=== PATIENT | male | born 1975 | race Caucasian/White ===

== ENCOUNTER 2016-11-30 00:45 | Emergency (ER) | payer MEDICAID ==
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
[2016-11-30] MEDS ORDERED: NICOTINE 21 MG/24 HR PATCH.TD24 TD ONE (01:37)
[2016-11-30] MEDS ORDERED: QUETIAPINE FUMARATE 100 MG TABLET PO ONE (01:53)
[2016-11-30 02:01] LABS: APPEARANCE,URINE CLEAR; BILIRUBIN,URINE NEGATIVE (NEGATIVE); GLUCOSE, URINE NEGATIVE (NEGATIVE); KETONES,URINE NEGATIVE (NEGATIVE); LEUKOCYTE ESTERASE,URINE NEGATIVE (NEGATIVE); NITRITE,URINE NEGATIVE (NEGATIVE); PROTEIN,URINE NEGATIVE (NEGATIVE); URINE SPECIFIC GRAVITY 1.017; UROBILINOGEN,URINE NEGATIVE mg/dL (<2.0)
[2016-11-30 02:17] LABS: ABSOLUTE BASOPHILS # (AUTO) 0.1 10^3/uL (0.0-0.2); ABSOLUTE EOSINOPHILS # (AUTO) 0.2 10^3/uL (0.0-0.6); ABSOLUTE LYMPHOCYTES (AUTO) 3.2 10^3/uL (0.5-4.7); ABSOLUTE MONOCYTES (AUTO) 0.8 10^3/uL (0.1-1.4); ABSOLUTE NEUT (AUTO) 5.3 10^3/uL (1.7-8.2); BASOPHILS % (AUTO) 0.7 % (0-2); HEMATOCRIT 47.2 % (37.9-51.0); HEMOGLOBIN 16.2 g/dL (13.5-17.0); HGB HCT DIFFERENCE 1.4; LYMPHOCYTES % (AUTO) 33.4 % (13-45); MEAN CORPUSCULAR HEMOGLOBIN 29.5 pg (27.0-33.4); MEAN CORPUSCULAR HGB CONC 34.3 g/dL (32.0-36.0); MEAN CORPUSCULAR VOLUME 86 fl (80-97); MONOCYTES % (AUTO) 8.6 % (3-13); RED BLOOD COUNT 5.49 10^6/uL (4.35-5.55); SEGMENTED NEUTROPHILS % (AUTO) 55.3 % (42-78); WHITE BLOOD COUNT 9.6 10^3/uL (4.0-10.5)
[2016-11-30 02:17] LABS: URINE BARBITURATES SCREEN NEGATIVE; URINE METHADONE SCREEN NEGATIVE; URINE OPIATES LOW NEGATIVE; URINE PHENCYCLIDINE SCREEN NEGATIVE
[2016-11-30 02:32] LABS: ALANINE AMINOTRANSFERASE 39 U/L (21-72); ALKALINE PHOSPHATASE 73 U/L (38-126); ANION GAP 7 (5-19); ASPARTATE AMINO TRANSFERASE 20 U/L (17-59); BILIRUBIN,DIRECT 0.3 mg/dL (0.0-0.4); BILIRUBIN,TOTAL 0.8 mg/dL (0.2-1.3); BLOOD UREA NITROGEN 14 mg/dL (7-20); CALCIUM 9.5 mg/dL (8.4-10.2); CARBON DIOXIDE 29 mmol/L (22-30); CHLORIDE 104 mmol/L (98-107); CREATININE RESULT 0.89 mg/dL (0.52-1.25); GLUCOSE 90 mg/dL (75-110); SODIUM 139.6 mmol/L (137-145); TOTAL PROTEIN 6.8 g/dL (6.3-8.2)
[2016-11-30 02:34] LABS: ALCOHOL < 10 mg/dL (NONE DETECTED)
--- NOTE | 2016-11-30 10:04 | EKG REPORT ---
SEVERITY:- ABNORMAL ECG - SINUS RHYTHM INFERIOR INFARCT, OLD : Confirmed by: Stella Barrow 30-Nov-2016 10:04:20
--- NOTE | 2016-11-30 10:52 | ER Document Report ---
Doctor's Note Notes: 11/30/16 10:51 Chart reviewed. Today patient reports persistent suicidal ideation. Lab review demonstrates positive marijuana and cocaine. Patient states she feels sad and is tearful this morning. At this time he appears medically stable for psychiatric disposition.
--- NOTE | 2016-11-30 12:06 | PSYCHOLOGICAL NOTE ---
Psych Note - Psych Note Psych Note: Patient is a 41 year old male who presented overnight via his sister after he went to [place] to see his best friend and use one of his guns to commit suicide. Patient endorses he does know individuals here in the [place] area who have guns, but states, "none of them would dare put one in my hand in this state." Patient states he wants to . Patient states there is nothing left in life for him. Patient endorses long history of SA, and acknowledges that over the past month he has been doing whatever drug he could get his hands on. Patient states he previously lived with his son, age 16, but his son has gone to [place] to take a break from him. Patient reports he now lives with his mother, and she can be contacted for collateral. Patient reports he is on probation "for bull sh charges" which he states are drug related. Patient unable and unwilling to provide the name of his PO. Patient denies any prior suicide attempts, but does endorse a history of inpatient psychiatric treatment a few years ago in [place]. Patient states this was the best experience for him because he had people he could talk to and regulate his medications. Discussed with patient that his substance abuse is chronic and at this time primary, and required treatment. Patient became agitated aeb labile tone of voice and body language, and state he could not leave this ED because he will not survive. Patient states he will without a doubt, commit suicide. Cocaine Abuse, per history Cannabis Abuse, per history R/O Bipolar Disorder Patient is recommended to remain under IVC for further disposition and evaluations. Patient at this time is labile and likely withdrawing from his past week of substance abuse. Patient at this time is endorses SI. Patient became quite agitated when attempting to discuss substance abuse treatment. I consulted with Dr. Cooper in regards to the care and management of this patient. ED MD is in agreement with disposition and recommendations.
[2016-11-30] MEDS ORDERED: OLANZAPINE 5 MG TABLET PO SCH (12:30)
[2016-11-30] MEDS ORDERED: BENZTROPINE MESYLATE 1 MG TABLET PO SCH (12:30)
[2016-11-30] MEDS ORDERED: HYDROXYZINE PAMOATE 50 MG CAPSULE PO ONE (23:39)
--- NOTE | 2016-12-01 10:58 | ER Document Report ---
Doctor's Note Notes: 12/01/16 10:58 As the rounding physician for our psychiatric patients, I have reviewed the chart, vitals, lab work. Patient has been examined, is resting comfortably, and noted to be stable at this time . I am awaiting mental health in put regarding placement.
[2016-12-01] MEDS ORDERED: NICOTINE 21 MG/24 HR PATCH.TD24 TD ONE (12:09)
[2016-12-01] MEDS: BENZTROPINE MESYLATE 1 MG TABLET PO SCH (12:50)
[2016-12-01] MEDS ORDERED: OLANZAPINE 5 MG TABLET PO ONE (13:00)
[2016-12-01] MEDS ORDERED: BENZTROPINE MESYLATE 1 MG TABLET PO ONE (13:00)
--- NOTE | 2016-12-01 13:57 | PSYCHOLOGICAL NOTE ---
Psych Note - Psych Note Psych Note: Conducted check in with patient is a 41 year old male under IVC at [facility] ED. Patient initially presented via his sister after he went to [place] to see his best friend and use one of his guns to commit suicide. Patient continues to endorse SI and states he will obtain a gun to commit suicide. Patient denies that his substance abuse is primary, and states his psychiatric illness is the problem, and the drugs are used to cope. Discussed with patient that his substance abuse is chronic and at this time primary, and required treatment. Patient provided education regarding the services and treatment available in [place] at this time. Patient provided verbal consent to speak with his mother. Ada (mother) [phone] states: no answer, and unable to leave message Patient is A&Ox4. Mood is depressed with normal affect. Patient endorses SI with plan. Patient denies homicidal ideations, intent, plan, or means. Patient denies A/V H; delusions not noted. Thought processes were goal oriented towards remaining in the ER. Conversational speech was labile for prosody. Intellectual abilities were estimated within average range. Attention and focus were fair. Insight, judgment, and impulse control were poor. Cocaine Abuse, per history Cannabis Abuse, per history R/O Bipolar Disorder Patient is recommended to remain under IVC for further disposition and evaluations.
[2016-12-01] MEDS ORDERED: FLUOXETINE HCL 20 MG CAPSULE PO SCH (14:30)
[2016-12-01] MEDS: OLANZAPINE 5 MG TABLET PO SCH (18:07)
[2016-12-01] MEDS ORDERED: FLUOXETINE HCL 20 MG/5 ML UDCUP PO ONE (18:30)
[2016-12-01] MEDS ORDERED: CLONIDINE HCL 0.1 MG TABLET PO ONE (20:46)
[2016-12-02] MEDS: OLANZAPINE 5 MG TABLET PO SCH ×2 (09:57→17:23)
[2016-12-02] MEDS: BENZTROPINE MESYLATE 1 MG TABLET PO SCH (09:57)
[2016-12-02] MEDS ORDERED: FLUOXETINE HCL 20 MG/5 ML UDCUP PO SCH (10:00)
--- NOTE | 2016-12-02 12:41 | ER Document Report ---
Doctor's Note Notes: 12/02/16 12:39 Rounds: Chart reviewed and patient sleeping soundly, does not awaken to me calling his name several times. Vital signs have been normal. Lab studies were significantly positive for cocaine and marijuana on his drug screen. Patient appears to be medically stable for transfer or discharge. Malachi Louis MD
[2016-12-02 14:39] VITALS: BP 141/88
--- NOTE | 2016-12-02 15:13 | ER Document Report ---
ED Psych Disorder / Suicide - General Chief Complaint: Psych Problem Stated Complaint: SUICIDAL IDEATIONS Time Seen by Provider: 11/30/16 01:13 Mode of Arrival: Ambulatory Information source: Patient TRAVEL OUTSIDE OF THE U.S. IN LAST 30 DAYS: No - HPI Notes: Patient is a 41 year old male under IVC at [facility] ED. Patient initially presented via his sister after he went to [place] to see his best friend and use one of his guns to commit suicide. Patient continues to endorse SI and states he will obtain a gun to commit suicide. Patient denies that his substance abuse is primary, and states his psychiatric illness is the problem, and the drugs are used to cope. Discussed with patient that his substance abuse is chronic and at this time primary, and required treatment. Patient provided education regarding the services and treatment available in [place] at this time. Patient provided verbal consent to speak with his mother. Patient states he does not feel any better. He disclosed that he has had episode of hallucinating. He continued disclosed that he did not know he was hallucinating however people told him it it was not real. He continued disclosed that his visual hallucination is up shadow people however he continued disclosed that he did not want to talk about it "makes it too real." When clinician discussed discharge plans patient stated "I cannot stay here were my supposed to go." Patient proceeded to threatening suicidal gestures. Patient continued disclosed the first time he had an episode was "years ago" in late 2004 however denies receiving any mental health services after. Patient denies having outpatient mental health provider or taking any medications. Patient continued disclosed that he is currently on probation and is supposed to go to substance abuse treatment however "they never set it up" so he has not gone. Patient has been on probation for approximately 5 months. Ada (mother) [phone]. He has been suicidal this last week and homicidal now. He had a friend that ( 2 weeks ago), lost his job (the day after his friend )and his son went back to [place]. Patient sat in his chair for 2 days after hearing of his friends . This is very similar about what has happened in the past one or twice. Was put on "antipsychotics and was hospitalized for a length of time." At that time he was suicidal and homicidal ideation. Concerned the patient has not been sleeping and historically this has caused issues. Patient has issues with his spine was hospitalized for over 2 months for infection settled into his spine from his blood in [place]. 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 Cocaine Abuse, per history Cannabis Abuse, per history R/O Bipolar Disorder with Psychotic features. V62.9 (Z65.9) unspecified problem related to unspecified psychological and circumstance impression\\plan: Patient is recommended for rescind of IVC and is considered psychiatrically clear for discharge. Patient no longer meets criteria per [place] GS 122C. Patient discloses history (12 years) of substance abuse and noncompliance with mental health services. Patient is recommended to receive substance abuse assessment and treatment patient to mental health treatment. Dr. Cooper was consulted on the care and management of this patient; attending physician is in agreement with recommendations and disposition. - Related Data Allergies/Adverse Reactions: Sulfa (Sulfonamide Antibiotics) Allergy (Verified 12/26/15 04:26) Home Medications: Current Home Medications Benzonatate [Tessalon Perle 100 mg Capsule] 200 mg PO TIDP PRN 12/01/16 [History ] Clonidine HCl [Catapres 0.1 mg Tablet] 0.1 mg PO Q12 12/01/16 [History] Escitalopram Oxalate [Lexapro 10 mg Tablet] 10 mg PO DAILY 12/01/16 [History] Lisinopril/Hydrochlorothiazide [Lisinopril-Hctz 20-25 mg Tab] 1 tab PO DAILY [History] Methocarbamol [Robaxin 750 mg Tablet] 750 mg PO Q4HP PRN 12/01/16 [History] Nystatin/Dexameth/Diphen [Magic Mouthwash] 5 ml PO Q4 12/01/16 [History] Oxycodone HCl [Roxicodone] 30 mg PO Q6 12/01/16 [History] Prednisone [Sterapred Ds] 1 packet PO ASDIR PRN 12/01/16 [History] Trazodone HCl [Desyrel] 150 mg PO QHS 12/01/16 [History] Past Medical History - General Information source: Patient - Social History Smoking Status: Current Every Day Smoker - 2 packs Cigarette use (# per day): Yes - 2 packs Frequency of alcohol use: Heavy - past few days Drug Abuse: Cocaine, Other - opiates Lives with: Parents - mom Family History: Reviewed & Not Pertinent Patient has suicidal ideation: Yes Patient has homicidal ideation: No - Past Medical History Cardiac Medical History: Reports: Hx Hypertension - untreated for awhile Renal/ Medical History: Denies: Hx Peritoneal Dialysis Psychiatric Medical History: Reports: Hx Depression Past Surgical History: Reports: Hx Appendectomy - Immunizations Hx Diphtheria, Pertussis, Tetanus Vaccination: Yes Physical Exam - Vital signs Vitals: Temp Pulse Resp BP Pulse Ox 98.0 F 100 20 160/103 H 100 11/30/16 00:49 11/30/16 00:49 11/30/16 00:49 11/30/16 00:49 11/30/16 00:49 Course - Vital Signs Vital signs: Temp Pulse Resp BP Pulse Ox 97.8 F 76 20 141/88 H 97 12/02/16 14:17 12/02/16 14:17 12/02/16 14:17 12/02/16 14:17 12/02/16 14:17 - Laboratory Result Diagrams: 11/30/16 02:00 11/30/16 02:00 Laboratory results interpreted by me: 11/30/16 11/30/16 01:30 02:00 Urine Blood SMALL H Salicylates < 1.0 L Acetaminophen < 10 L Discharge - Discharge Clinical Impression: Paranoia, Suicide ideation, Polysubstance (including opioids) dependence w/o physiol dependence Suicide gesture Qualifiers: Encounter type: initial encounter Qualified Code(s): X83.8XXA - Intentional self-harm by other specified means, initial encounter Condition: Stable Disposition: HOME, SELF-CARE Additional Instructions: DEPRESSION: Your evaluation reveals that you have mental depression. While symptoms may be vague, they often include disturbance of sleep, fatigue, loss of appetite , and general loss of interest in life. While depression may be a side effect of drugs, or a reaction to a major change in your life, many cases have no known cause. If depression is acute, and related to a major loss in your life, you can expect it to clear completely with time. If you have been depressed a long time , are prone to repeated bouts of depression or low mood, or have been thinking of suicide, get help. Depression can be treated with anti-depressant medication and counselling. Long-term depression will often take a few weeks to clear, even with appropriate medication. Follow-up care is important. SUICIDAL IDEATION: Suicidal ideation is a common medical term for thoughts about suicide, which may be as detailed as a formulated plan, without the suicidal act itself. Although most people who undergo suicidal ideation do not commit suicide, some go on to make suicide attempts. The range of suicidal ideation varies greatly from fleeting to detailed planning, role playing, and unsuccessful attempts. While thoughts about suicide are common, most people do not carry out serious actions to commit suicide. Based upon your evaluation and discussion with you, we do not believe you are currently at risk to act upon your thoughts of suicide. You have agreed to return to the Emergency Department, at any time , if you feel inclined to act upon your suicidal thoughts. FOLLOW-UP CARE: Please follow up with [facility] Sub[facility] abuse assessment and treatment within 2 days. If you experience worsening or a significant change in your symptoms, notify the physician immediately or return to the Emergency Department at any time for re-evaluation. Referrals: [facility] [Outside] - 12/04/16
== END 2016-12-02 17:33 | disposition home or self-care (01) ==
LOC: ER 00:45
DX: R45.851 Suicidal ideations (principal); F22 Delusional disorders; F11.20 Opioid dependence, uncomplicated; F17.210 Nicotine dependence, cigarettes, uncomplicated; X83.8XXA Intentional self-harm by other specified means, initial encounter; F12.10 Cannabis abuse, uncomplicated; F14.10 Cocaine abuse, uncomplicated; Z88.2 Allergy status to sulfonamides
CPT/HCPCS: 93005; 99285; 36415; 80307 ×4; 85025; 80053; 81001; 93010; J3490 ×2

== ENCOUNTER 2016-12-06 01:22 | Emergency (ER) | payer SELFPAY ==
--- NOTE | 2016-12-06 01:40 | ER Document Report ---
ED Psych Disorder / Suicide - General Chief Complaint: Suicidal Ideation Stated Complaint: SUICIDAL IDEATION Time Seen by Provider: 12/06/16 01:39 Mode of Arrival: Ambulatory Information source: Patient Notes: 41 yo male cut his wrists sometime tonight and wanted to lay in bathtub and . He is agitated, visually hallucinating that man in [place] has a tail, Will haunts him, sees his face, was his tatoo client, blames himself for his . pt. states he is recovering heroin addict. Xanax this morning from mom. Last Heroin few weeks ago. He was [facility] ER 5-30 psych until discharge 12-02-16. TRAVEL OUTSIDE OF THE U.S. IN LAST 30 DAYS: No - Related Data Allergies/Adverse Reactions: Sulfa (Sulfonamide Antibiotics) Allergy (Verified 12/26/15 04:26) Past Medical History - General Information source: Patient - Social History Smoking Status: Current Every Day Smoker Frequency of alcohol use: Occasional - today Drug Abuse: None Lives with: Family - mother Family History: Reviewed & Not Pertinent - Past Medical History Cardiac Medical History: Reports: Hx Hypertension - untreated for awhile Renal/ Medical History: Denies: Hx Peritoneal Dialysis Psychiatric Medical History: Reports: Hx Anxiety, Hx Depression Past Surgical History: Reports: Hx Appendectomy - Immunizations Hx Diphtheria, Pertussis, Tetanus Vaccination: Yes Review of Systems - Review of Systems Constitutional: No symptoms reported EENT: No symptoms reported Cardiovascular: No symptoms reported Respiratory: No symptoms reported Gastrointestinal: No symptoms reported Genitourinary: No symptoms reported Male Genitourinary: No symptoms reported Musculoskeletal: No symptoms reported Skin: No symptoms reported Hematologic/Lymphatic: No symptoms reported Neurological/Psychological: See HPI Physical Exam - Vital signs Vitals: Temp Pulse Resp BP Pulse Ox 99.4 F 97 20 148/103 H 97 12/06/16 03:20 12/06/16 03:20 12/06/16 03:20 12/06/16 03:20 12/06/16 03:20 Interpretation: Normal - General General appearance: Appears well, Alert - HEENT Head: Normocephalic, Atraumatic Eyes: Normal Conjunctiva: Normal Pupils: PERRL Mucous membranes: Dry Neck: Supple. No: Lymphadenopathy - Respiratory Respiratory status: No respiratory distress Chest status: Nontender Breath sounds: Normal Chest palpation: Normal - Cardiovascular Rhythm: Regular Heart sounds: Normal auscultation Murmur: No - Abdominal Inspection: Normal Distension: No distension Bowel sounds: Normal Tenderness: Nontender. No: Tender Organomegaly: No organomegaly - Back Back: Normal, Nontender - Extremities General upper extremity: Normal inspection, Nontender, Normal color, Normal ROM , Normal temperature General lower extremity: Normal inspection, Nontender, Normal color, Normal ROM , Normal temperature, Normal weight bearing. No: Za's sign Wrist: Tender - horozontal superficial cut 3 cm to right volar wrist. left wrist similar 3cm superficial cut to volar wrist-horozontal - Neurological Neuro grossly intact: Yes Cognition: Normal Orientation: AAOx4 [place] Coma Scale Eye Opening: Spontaneous [place] Coma Scale Verbal: Oriented [place] Coma Scale Motor: Obeys Commands [place] Coma Scale Total: 15 Speech: Normal Motor strength normal: LUE, RUE, LLE, RLE Sensory: Normal - Psychological Associated symptoms: Agitated, Confused - did not know day or time, Irritable, Paranoid, Psychomotor agitation, Visual hallucinations - Skin Skin Temperature: Warm Skin Moisture: Dry Skin Color: Normal Skin irregularity: Laceration - bilateral volar wrists Course - Re-evaluation Re-evalutation: 12/06/16 02:36 ekg NSR signed /read by dr. isabel 12/06/16 05:26 pt positive for cocaine and etoh. 12/06/16 06:00 pt has been IVC'd, Dr. Harley signed the IVC and the nurse will fax to [employer]. 12/06/16 06:17 asleep - Vital Signs Vital signs: Temp Pulse Resp BP Pulse Ox 97.9 F 92 18 154/116 H 98 12/06/16 14:46 12/06/16 14:46 12/06/16 14:46 12/06/16 14:46 12/06/16 14:46 - Laboratory Result Diagrams: 12/06/16 03:43 12/06/16 03:43 Laboratory results interpreted by me: 12/06/16 12/06/16 03:43 03:43 WBC 10.6 H RBC 5.62 H RDW 14.5 H Sodium 145.3 H Chloride 111 H Carbon Dioxide 18 L Salicylates < 1.0 L Acetaminophen < 10 L Discharge - Discharge Clinical Impression: Polysubstance abuse, Paranoia, Visual and auditory hallucinations Suicide gesture Qualifiers: Encounter type: initial encounter Qualified Code(s): X83.8XXA - Intentional self-harm by other specified means, initial encounter Condition: Stable Disposition: PSYCH HOSP/UNIT
[2016-12-06] MEDS ORDERED: DIPH/PERTUSS(ACELL)/TETANUS VAC/PF 0.5 ML SYR (>=10YO) IM ONE (01:53)
[2016-12-06] MEDS ORDERED: ZIPRASIDONE MESYLATE INJ/PF 20 MG SDV IM ONE (02:32)
[2016-12-06 03:40] LABS: APPEARANCE,URINE CLEAR; BILIRUBIN,URINE NEGATIVE (NEGATIVE); GLUCOSE, URINE NEGATIVE (NEGATIVE); KETONES,URINE NEGATIVE (NEGATIVE); LEUKOCYTE ESTERASE,URINE NEGATIVE (NEGATIVE); NITRITE,URINE NEGATIVE (NEGATIVE); PROTEIN,URINE NEGATIVE (NEGATIVE); URINE SPECIFIC GRAVITY 1.005; UROBILINOGEN,URINE NEGATIVE mg/dL (<2.0)
[2016-12-06 03:53] LABS: URINE BARBITURATES SCREEN NEGATIVE; URINE METHADONE SCREEN NEGATIVE; URINE OPIATES LOW NEGATIVE; URINE PHENCYCLIDINE SCREEN NEGATIVE
[2016-12-06 04:07] LABS: ABSOLUTE EOSINOPHILS # (AUTO) 0.1 10^3/uL (0.0-0.6); ABSOLUTE LYMPHOCYTES (AUTO) 3.8 10^3/uL (0.5-4.7); ABSOLUTE MONOCYTES (AUTO) 0.7 10^3/uL (0.1-1.4); ABSOLUTE NEUT (AUTO) 6.1 10^3/uL (1.7-8.2); BASOPHILS % (AUTO) 0.4 % (0-2); EOSINOPHILS % (AUTO) 0.8 % (0-6); HEMATOCRIT 49.4 % (37.9-51.0); HEMOGLOBIN 16.5 g/dL (13.5-17.0); HGB HCT DIFFERENCE 0.1; LYMPHOCYTES % (AUTO) 35.4 % (13-45); MEAN CORPUSCULAR HEMOGLOBIN 29.4 pg (27.0-33.4); MEAN CORPUSCULAR HGB CONC 33.5 g/dL (32.0-36.0); MEAN CORPUSCULAR VOLUME 88 fl (80-97); MONOCYTES % (AUTO) 6.1 % (3-13); RED BLOOD COUNT 5.62 10^6/uL (4.35-5.55); RED CELL DISTRIBUTION WIDTH 14.5 % (11.5-14.0); SEGMENTED NEUTROPHILS % (AUTO) 57.3 % (42-78); WHITE BLOOD COUNT 10.6 10^3/uL (4.0-10.5)
[2016-12-06] MEDS ORDERED: LORAZEPAM INJ 2 MG/1 ML VIAL IM ONE (04:09)
[2016-12-06] MEDS ORDERED: LORAZEPAM INJ 2 MG/1 ML VIAL ONE (04:10)
[2016-12-06 04:12] LABS: ALANINE AMINOTRANSFERASE 39 U/L (21-72); ALBUMIN 4.3 g/dL (3.5-5.0); ALCOHOL 123 mg/dL (NONE DETECTED); ALKALINE PHOSPHATASE 70 U/L (38-126); ANION GAP 16 (5-19); ASPARTATE AMINO TRANSFERASE 22 U/L (17-59); BILIRUBIN,DIRECT 0.3 mg/dL (0.0-0.4); BILIRUBIN,TOTAL 0.4 mg/dL (0.2-1.3); BLOOD UREA NITROGEN 8 mg/dL (7-20); CALCIUM 9.4 mg/dL (8.4-10.2); CARBON DIOXIDE 18 mmol/L (22-30); CHLORIDE 111 mmol/L (98-107); CREATININE RESULT 0.91 mg/dL (0.52-1.25); GLUCOSE 102 mg/dL (75-110); POTASSIUM 3.8 mmol/L (3.6-5.0); SODIUM 145.3 mmol/L (137-145); TOTAL PROTEIN 7.3 g/dL (6.3-8.2)
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
[2016-12-06] MEDS ORDERED: NICOTINE 21 MG/24 HR PATCH.TD24 TD ONE (11:39)
--- NOTE | 2016-12-06 14:38 | EKG REPORT ---
SEVERITY:- ABNORMAL ECG - SINUS RHYTHM INFERIOR INFARCT, OLD : Confirmed by: Stella Barrow 06-Dec-2016 14:37:23
[2016-12-06 14:46] VITALS: BP 154/116
--- NOTE | 2016-12-06 14:55 | PSYCHOLOGICAL NOTE ---
Psych Note - Psych Note Psych Note: Patient is a 41 year old male who presented overnight via EMS due to self inflicted lacerations on his arm, reportedly in attempt at suicide. Note, patient was seen in this Department last week and discharged to follow up with a provider, such as [facility] or [facility]. Per EMR, patient has a long history of SA; however, has recently been pursuing sobriety. Patient's toxicology was positive for Cocaine and ETOH (123). Patient advised that he has been accepted at [facility] to psychiatric inpatient treatment. Patient accepted the information without incident. Patient prompted to call his mother and make her aware of his transfer. MotherAda states: the patient's mental status has not changed since his discharge last week. She states after he was discharged , there was not time to follow up with the outpatient, and Tuesday he slept all day. Mother states to her knowledge he did not receive prescriptions, but even if he did he did not have money to fill them. Mother states yesterday he went to his trailer to pack his belongings (due to eviction) and she states she received a phone call from the patient stating he cut his wrists, and she immediately called [phone]. Mother states the patient talks about being tired, not wanting to be around, etc. Mother states his friend OD on Heroin (accidental) and he has struggled since. She does clarify that for many years he has been depressed and experienced SI. Mother states he has attempted suicide in the past , to include OD, self injury, etc. She states he has lived in many different areas and had inpatient experiences in numerous places. Patient is A&O. Mood is depressed with tearful affect. Patient endorses suicidal ideations. Patient denies homicidal ideations, intent, plan, or means. Patient denies A/V H; delusions not noted. Thought processes were organized, but guarded. Intellectual abilities were estimated within average range. Attention and focus are poor. Insight, judgment, impulse control are poor. Patient is recommended to follow through with his inpatient psychiatric placement. Patient has presented now twice in a period of 1 week with suicidal ideations, with a benign attempt last night. Patient had recent stressors, to include the of his friend, which have reportedly exasperated his depression. Consulted with Dr. Cooper in regards to the care and management of this patient. ED MD is in agreement with disposition and recommendations.
== END 2016-12-06 15:15 ==
LOC: ER 01:22
DX: S61.512A Laceration without foreign body of left wrist, initial encounter (principal); S61.511A Laceration without foreign body of right wrist, initial encounter; X78.9XXA Intentional self-harm by unspecified sharp object, initial encounter; F19.10 Other psychoactive substance abuse, uncomplicated; F11.21 Opioid dependence, in remission; F22 Delusional disorders; F17.200 Nicotine dependence, unspecified, uncomplicated; I10 Essential (primary) hypertension; Z88.2 Allergy status to sulfonamides
CPT/HCPCS: 93005; 99285; 96372; 90471; 36415; 80307 ×4; 85025; 80053; 81001; 90715; 93010; J2060; J3486

== ENCOUNTER 2016-12-20 02:39 | Emergency (ER) | payer SELFPAY ==
[2016-12-20] MEDS ORDERED: HALOPERIDOL LACTATE INJ 5 MG/1 ML VIAL IM ONE (03:03)
[2016-12-20] MEDS ORDERED: LORAZEPAM INJ 2 MG/1 ML VIAL IM ONE (03:03)
--- NOTE | 2016-12-20 03:06 | ER Document Report ---
ED General - General Chief Complaint: Suicidal Ideation Stated Complaint: SUICIDIAL IDEATION Time Seen by Provider: 12/20/16 02:55 Notes: Patient is a 41-year-old male who presents with complaint of having hallucinations. He says he hears voices. He also has visual hallucinations as well. He says that he has had a symptoms in the past. He was recently discharged from [facility] for similar symptoms. He was discharged home with medications but could not afford them and therefore has not been taking them. He says he has thoughts of suicide. He also has thoughts of homicide and says "I have targets in my head but had not acted on them". He says the only medication he takes his clonidine for hypertension. Says he was receiving Haldol and Ativan at [place] which helps control his symptoms. TRAVEL OUTSIDE OF THE [place] IN LAST 30 DAYS: No - Related Data Allergies/Adverse Reactions: Sulfa (Sulfonamide Antibiotics) Allergy (Verified 12/26/15 04:26) Past Medical History - Social History Smoking Status: Never Smoker Frequency of alcohol use: None Drug Abuse: None Family History: Reviewed & Not Pertinent - Past Medical History Cardiac Medical History: Reports: Hx Hypertension - untreated for awhile Renal/ Medical History: Denies: Hx Peritoneal Dialysis Psychiatric Medical History: Reports: Hx Anxiety, Hx Depression Past Surgical History: Reports: Hx Appendectomy - Immunizations Hx Diphtheria, Pertussis, Tetanus Vaccination: Yes Review of Systems - Review of Systems Notes: My Normal Review Basic REVIEW OF SYSTEMS: CONSTITUTIONAL : Denies fever, chills, or sweats. Denies recent illness. EENT: Denies eye, ear, throat, or mouth pain or symptoms. Denies nasal or sinus congestion.ARDIOVASCULAR: Denies chest pain. RESPIRATORY: Denies cough, cold, or chest congestion. Denies shortness of breath, difficulty breathing, or wheezing. GASTROINTESTINAL: Denies abdominal pain. Denies nausea, vomiting, or diarrhea. Denies constipation. Last BM: MUSCULOSKELETAL: Denies neck or back pain or joint pain or swelling. SKIN: Denies rash or skin lesions. NEUROLOGICAL: Denies altered mental status or loss of consciousness. Denies headache. Denies weakness or paralysis or loss of use of either side. Denies problems with gait or speech. Denies sensory or motor loss. PSYCHIATRIC: Homicidal thoughts. Visual and auditory hallucinations. ALL OTHER SYSTEMS REVIEWED AND NEGATIVE. Physical Exam - Notes Notes: General Appearance: Well nourished, alert, cooperative, no acute distress, no obvious discomfort. Vitals: reviewed, See vital signs table. Head: no swelling or tenderness to the head Eyes: PERRL, EOMI, Conjuctiva clear Mouth: No decreasd moisture Lungs: No wheezing, No rales, No rhonci, No accessory muscle use, good air exchange bilaterally. Heart: Normal rate, Regular rythm, No murmur, no rub Abdomen: Normal BS, soft, No rigidity, No abdominal tenderness, No guarding, no rebound, no abdominal masses, no organomegaly Extremities: strength 5/5 in all extremities, good pulses in all extremities, no swelling or tenderness in the extremities, no edema. Skin: warm, dry, appropriate color, no rash Neuro: speech clear, oriented x 3, normal affect, responds appropriately to question. Psychiatric: rocking back and forth in bed. easily agitated. Course - Laboratory Result Diagrams: 12/20/16 03:14 12/20/16 03:14 Laboratory results interpreted by me: 12/20/16 12/20/16 03:14 03:14 WBC 11.3 H RDW 14.5 H Salicylates < 1.0 L Acetaminophen < 10 L - EKG Interpretation by Me Additional EKG results interpreted by me: 12/20/16 03:34 Is reviewed and interpreted by me. EKG shows normal sinus rhythm with a rate of [address] segment elevation or depression. No ischemic T-wave inversions. NV interval, QRS duration, QTc intervals are within normal range. Old EKG for comparison is from December 06, 2016. - Transfer of Care Notes: 12/20/16 05:52 Patient laboratory evaluation is unremarkable. The only thing pending is urinalysis. Patient is having significant hallucinations causing suicidal and homicidal thoughts. Patient is placed on involuntary commitment paperwork. He is medically stable for psychiatric evaluation. Dictation of this chart was performed using voice recognition software; therefore, there may be some unintended grammatical errors.
[2016-12-20 03:24] LABS: ABSOLUTE BASOPHILS # (AUTO) 0.1 10^3/uL (0.0-0.2); ABSOLUTE EOSINOPHILS # (AUTO) 0.1 10^3/uL (0.0-0.6); ABSOLUTE LYMPHOCYTES (AUTO) 2.4 10^3/uL (0.5-4.7); ABSOLUTE NEUT (AUTO) 7.6 10^3/uL (1.7-8.2); BASOPHILS % (AUTO) 0.8 % (0-2); EOSINOPHILS % (AUTO) 1.2 % (0-6); HEMATOCRIT 47.9 % (37.9-51.0); HEMOGLOBIN 15.6 g/dL (13.5-17.0); HGB HCT DIFFERENCE -1.1; LYMPHOCYTES % (AUTO) 21.6 % (13-45); MEAN CORPUSCULAR HGB CONC 32.6 g/dL (32.0-36.0); MEAN CORPUSCULAR VOLUME 89 fl (80-97); RED BLOOD COUNT 5.39 10^6/uL (4.35-5.55); RED CELL DISTRIBUTION WIDTH 14.5 % (11.5-14.0); SEGMENTED NEUTROPHILS % (AUTO) 67.4 % (42-78); WHITE BLOOD COUNT 11.3 10^3/uL (4.0-10.5)
[2016-12-20 03:41] LABS: ALANINE AMINOTRANSFERASE 46 U/L (21-72); ALBUMIN 3.9 g/dL (3.5-5.0); ALKALINE PHOSPHATASE 69 U/L (38-126); ANION GAP 11 (5-19); ASPARTATE AMINO TRANSFERASE 18 U/L (17-59); BILIRUBIN,DIRECT 0.2 mg/dL (0.0-0.4); BILIRUBIN,TOTAL 0.5 mg/dL (0.2-1.3); BLOOD UREA NITROGEN 10 mg/dL (7-20); CALCIUM 9.1 mg/dL (8.4-10.2); CARBON DIOXIDE 23 mmol/L (22-30); CHLORIDE 106 mmol/L (98-107); CREATININE RESULT 0.74 mg/dL (0.52-1.25); GLUCOSE 103 mg/dL (75-110); POTASSIUM 4.1 mmol/L (3.6-5.0); SODIUM 140.2 mmol/L (137-145); TOTAL PROTEIN 6.6 g/dL (6.3-8.2)
[2016-12-20 03:43] LABS: ALCOHOL < 10 mg/dL (NONE DETECTED)
[2016-12-20] MEDS ORDERED: NICOTINE 21 MG/24 HR PATCH.TD24 TD ONE (07:56)
--- NOTE | 2016-12-20 10:24 | EKG REPORT ---
SEVERITY:- ABNORMAL ECG - SINUS RHYTHM INFERIOR INFARCT, OLD : Confirmed by: Pushpa Glynn MD 20-Dec-2016 10:23:18
[2016-12-20 11:32] LABS: APPEARANCE,URINE CLEAR; BILIRUBIN,URINE NEGATIVE (NEGATIVE); GLUCOSE, URINE NEGATIVE (NEGATIVE); KETONES,URINE NEGATIVE (NEGATIVE); LEUKOCYTE ESTERASE,URINE NEGATIVE (NEGATIVE); NITRITE,URINE NEGATIVE (NEGATIVE); PROTEIN,URINE NEGATIVE (NEGATIVE); URINE SPECIFIC GRAVITY 1.008; UROBILINOGEN,URINE NEGATIVE mg/dL (<2.0)
--- NOTE | 2016-12-20 11:39 | ER Document Report ---
Addendum entered and electronically signed by BLAINE JUAREZ LPC 12/20/16 11: 43: Discharge - Discharge Condition: Fair Disposition: HOME, SELF-CARE Additional Instructions: Hallucinations You seem to be having hallucinations. Hallucinations are seeing, hearing, or feeling things that don't exist. These symptoms commonly occur with drug abuse and schizophrenia. Drugs like PCP, LSD, MDMA, peyote, and "psychedelic mushrooms" can cause frightening hallucinations. Users of methamphetamine or crack cocaine often see and feel bugs crawling on their skin. Patients with schizophrenia may hear voices that no one else can hear. The delusions of schizophrenia often involve conspiracies or relationships that are not real. When symptoms are due to drug abuse, the mental state usually improves as the drug wears off. Someone you trust should be with you until you are better, to protect you and calm your fears. Tranquilizer medicine is helpful at controlling hallucinations, anxiety, and deluded thoughts. Get a proper diet and enough sleep. Most patients do very well when they get proper medical treatment and social support. You should return at once if your symptoms get worse, if you are having suicidal thoughts or thoughts about hurting others, or if you feel that you are in danger. Suicidal Ideation Suicidal ideation is a common medical term for thoughts about suicide, which may be as detailed as a formulated plan, without the suicidal act itself. Although most people who undergo suicidal ideation do not commit suicide, some go on to make suicide attempts. The range of suicidal ideation varies greatly from fleeting to detailed planning, role playing, and unsuccessful attempts. While thoughts about suicide are common, most people do not carry out serious actions to commit suicide. If you continue to have thoughts please contact mobile crisis or return to the emergency department. You are to go directly to [facility] today for your already scheduled appointment at 1200 (paperwork) and 1300 (actual appointment). Referrals: [facility] [Outside] - 12/20/16 12:00 pm Original Note: ED Psych Disorder / Suicide - General Information source: Patient TRAVEL OUTSIDE OF THE [place] IN LAST 30 DAYS: No - HPI Patient complains to provider of: Hallucinating, Suicidal ideation Onset: Yesterday Suicide Risk Factors: Depressed Associated symptoms: Depressed Similar symptoms previously: Yes Recently seen / treated by doctor: No - has appointment today at noon with [facility] <BLAINE JUAREZ - Last Filed: 12/20/16 11:39> <MEGAN GOVEA - Last Filed: 12/20/16 11:49> - General Chief Complaint: Suicidal Ideation Stated Complaint: SUICIDIAL IDEATION Time Seen by Provider: 12/20/16 02:55 - HPI Notes: Patient is a 41 year old male who presented to the ED [employer] for A/ V hallucinations which he reported were causing SI/HI. The ED Physician physician petitioned for IVC. (BLAINE JUAREZ) - Related Data Allergies/Adverse Reactions: Sulfa (Sulfonamide Antibiotics) Allergy (Verified 12/26/15 04:26) Past Medical History - Social History Smoking Status: Never Smoker Frequency of alcohol use: None Drug Abuse: None Family History: Reviewed & Not Pertinent - Past Medical History Cardiac Medical History: Reports: Hx Hypertension - untreated for awhile Renal/ Medical History: Denies: Hx Peritoneal Dialysis Psychiatric Medical History: Reports: Hx Anxiety, Hx Depression Past Surgical History: Reports: Hx Appendectomy - Immunizations Hx Diphtheria, Pertussis, Tetanus Vaccination: Yes <BLAINE JUAREZ - Last Filed: 12/20/16 11:39> Course - Laboratory Result Diagrams: 12/20/16 03:14 12/20/16 03:14 <BLAINE JUAREZ - Last Filed: 12/20/16 11:39> - Laboratory Result Diagrams: 12/20/16 03:14 12/20/16 03:14 <MEGAN GOVEA - Last Filed: 12/20/16 11:49> - Vital Signs Vital signs: Temp Pulse Resp BP Pulse Ox 97.8 F 65 12 113/68 96 12/20/16 10:42 12/20/16 10:42 12/20/16 10:42 12/20/16 10:42 12/20/16 10:42 - Laboratory Laboratory results interpreted by me: 12/20/16 12/20/16 03:14 03:14 WBC 11.3 H RDW 14.5 H Salicylates < 1.0 L Acetaminophen < 10 L Discharge <BLAINE JUAREZ - Last Filed: 12/20/16 11:39> <MEGAN GOVEA - Last Filed: 12/20/16 11:49> - Discharge Clinical Impression: Auditory hallucinations, Passive suicidal ideations Condition: Fair Disposition: HOME, SELF-CARE Additional Instructions: Hallucinations You seem to be having hallucinations. Hallucinations are seeing, hearing, or feeling things that don't exist. These symptoms commonly occur with drug abuse and schizophrenia. Drugs like PCP, LSD, MDMA, peyote, and "psychedelic mushrooms" can cause frightening hallucinations. Users of methamphetamine or crack cocaine often see and feel bugs crawling on their skin. Patients with schizophrenia may hear voices that no one else can hear. The delusions of schizophrenia often involve conspiracies or relationships that are not real. When symptoms are due to drug abuse, the mental state usually improves as the drug wears off. Someone you trust should be with you until you are better, to protect you and calm your fears. Tranquilizer medicine is helpful at controlling hallucinations, anxiety, and deluded thoughts. Get a proper diet and enough sleep. Most patients do very well when they get proper medical treatment and social support. You should return at once if your symptoms get worse, if you are having suicidal thoughts or thoughts about hurting others, or if you feel that you are in danger. Suicidal Ideation Suicidal ideation is a common medical term for thoughts about suicide, which may be as detailed as a formulated plan, without the suicidal act itself. Although most people who undergo suicidal ideation do not commit suicide, some go on to make suicide attempts. The range of suicidal ideation varies greatly from fleeting to detailed planning, role playing, and unsuccessful attempts. While thoughts about suicide are common, most people do not carry out serious actions to commit suicide. If you continue to have thoughts please contact mobile crisis or return to the emergency department. You are to go directly to [facility] today for your already scheduled appointment at 1200 (paperwork) and 1300 (actual appointment). Referrals: [facility] [Outside] - 12/20/16 12:00 pm
[2016-12-20 11:52] LABS: URINE BARBITURATES SCREEN NEGATIVE; URINE METHADONE SCREEN NEGATIVE; URINE OPIATES LOW NEGATIVE; URINE PHENCYCLIDINE SCREEN NEGATIVE
--- NOTE | 2016-12-20 11:56 | ER Document Report ---
Doctor's Note Notes: 12/20/16 11:54 Patient resting comfortably on stretcher, eating a lunch meal, Gracie from mental health is at bedside as well, we explained to patient that he is set up to have an appointment at [facility] at noon today for an intake and then to the doctor at 1:00, he is agreeable to this plan at this point in time, he did request IM Ativan and Haldol prior to leaving, however I explained to them that I did not want him to be completely sedated for his appointment at [facility] and therefore this was not granted, patient continues to report auditory hallucinations but he is not actively suicidal at the present time, therefore will be discharged with instructions for follow-up, advised to return if symptoms worsen, patient acknowledges understanding and agreement with this plan
[2016-12-20 12:00] VITALS: BP 126/82
== END 2016-12-20 12:20 | disposition home or self-care (01) ==
LOC: ER 02:39
DX: R44.0 Auditory hallucinations (principal); R45.851 Suicidal ideations; F14.99 Cocaine use, unspecified with unspecified cocaine-induced disorder; F32.9 Major depressive disorder, single episode, unspecified; R45.850 Homicidal ideations; I10 Essential (primary) hypertension; Z88.2 Allergy status to sulfonamides
CPT/HCPCS: 93005; 99285; 96372; 36415; 80307 ×4; 85025; 80053; 81001; 93010; J1630; J2060

== ENCOUNTER 2017-02-22 02:53 | Emergency (ER) | payer SELFPAY ==
--- NOTE | 2017-02-22 03:07 | ER Document Report ---
ED General - General Stated Complaint: PSYCH EVALUATION Notes: Patient is a 41-year-old male who presents with complaint of severe depression and self cutting. Patient comes in with multiple superficial abrasions to both forearms. He would not tell me a lot about once going on. The only thing he will tell me is that he has not slept in several days. He says he will not sleep because whenever he does sleep he has dreams that he is going to . He says he is afraid that if he falls asleep he will . Patient says he had those dreams last week and therefore has not slept the last several days because he is keeping himself awake. She says last tetanus shot was one week ago. Patient will not answer any of my further questions. TRAVEL OUTSIDE OF THE [place] IN LAST 30 DAYS: No - Related Data Allergies/Adverse Reactions: Sulfa (Sulfonamide Antibiotics) Allergy (Verified 12/26/15 04:26) Home Medications: Current Home Medications No Home Medications 02/22/17 [History] Past Medical History - Social History Smoking Status: Unknown if Ever Smoked Frequency of alcohol use: Occasional Drug Abuse: Cocaine Family History: Reviewed & Not Pertinent - Past Medical History Cardiac Medical History: Reports: Hx Hypertension - untreated for awhile Renal/ Medical History: Denies: Hx Peritoneal Dialysis Psychiatric Medical History: Reports: Hx Anxiety, Hx Depression Past Surgical History: Reports: Hx Appendectomy - Immunizations Hx Diphtheria, Pertussis, Tetanus Vaccination: Yes Review of Systems - Review of Systems Notes: My Normal Review Basic REVIEW OF SYSTEMS: CONSTITUTIONAL : Denies fever, chills, or sweats. Denies recent illness. RESPIRATORY: Denies cough, cold, or chest congestion. Denies shortness of breath, difficulty breathing, or wheezing. GASTROINTESTINAL: Denies abdominal pain. Denies nausea, vomiting, or diarrhea. Denies constipation. Last BM: MUSCULOSKELETAL: Denies neck or back pain or joint pain or swelling. SKIN: Denies rash or skin lesions. NEUROLOGICAL: Denies altered mental status or loss of consciousness. Denies headache. Denies weakness or paralysis or loss of use of either side. Denies problems with gait or speech. Denies sensory or motor loss. PSYCHIATRIC: Depression ALL OTHER SYSTEMS REVIEWED AND NEGATIVE. Physical Exam - Vital signs Vitals: Temp Pulse Resp BP Pulse Ox 98.7 F 94 18 111/72 97 02/22/17 03:46 02/22/17 03:46 02/22/17 03:46 02/22/17 03:46 02/22/17 03:46 - Notes Notes: General Appearance: Well nourished, alert, cooperative, no acute distress, no obvious discomfort. Vitals: reviewed, See vital signs table. Head: no swelling or tenderness to the head Eyes: PERRL, EOMI, Conjuctiva clear Mouth: No decreasd moisture Lungs: No wheezing, No rales, No rhonci, No accessory muscle use, good air exchange bilaterally. Heart: Normal rate, Regular rythm, No murmur, no rub Abdomen: Normal BS, soft, No rigidity, No abdominal tenderness, No guarding, no rebound, no abdominal masses, no organomegaly Extremities: strength 5/5 in all extremities, good pulses in all extremities, no swelling or tenderness in the extremities, no edema. Skin: Multiple superficial lacerations to both forearms. None of these lacerations require suturing. Neuro: speech clear, oriented x 3, normal affect, responds appropriately to questions. Psychiatric: Patient will not make eye contact. Patient continues to stare at the floor. Patient is very tearful. Course - Re-evaluation Re-evalutation: 02/22/17 04:35 Patient requests something to help him sleep. I ordered Benadryl. Patient instructed cursing at the nursing staff and me. I walked in the room. He wants Ativan and Haldol to help him sleep. I informed him that we do not just give medications like this for sleeping purposes. He did start yelling at me and told me that it was not his fault he cannot sleep. I did talk to him about his recent drug abuse and cocaine and how that affects his sleep patterns. Patient did not want hear what I was saying start yelling and cussing at me. Patient then got up and ran out the room. Security was unable to stop him. I filled out involuntary commitment paperwork. [place] police have been contacted to find the patient to bring him back as he is a danger to himself. 02/22/17 04:46 - Vital Signs Vital signs: Temp Pulse Resp BP Pulse Ox 98.7 F 94 18 111/72 97 02/22/17 03:46 02/22/17 03:46 02/22/17 03:46 02/22/17 03:46 02/22/17 03:46 - Laboratory Result Diagrams: 02/22/17 03:00 02/22/17 03:00 Laboratory results interpreted by me: 02/22/17 02/22/17 02/22/17 03:00 03:00 03:10 WBC 17.5 H RBC 5.67 H Hgb 17.3 H Hct 51.3 H Absolute Neutrophils 13.4 H Potassium 3.5 L Chloride 108 H Carbon Dioxide 21 L Urine Blood SMALL H Salicylates < 1.0 L Acetaminophen < 10 L - EKG Interpretation by Me Additional EKG results interpreted by me: 02/22/17 03:25 EKG is reviewed and interpreted by me. EKG shows sinus rhythm with rate of [address] segment elevation or depression. No ischemic T-wave inversions. WA interval, QRS duration, QTc intervals are within normal range. Old EKG for comparison is from December 20, 2016. Discharge - Discharge Clinical Impression: Drug abuse, Laceration Depression Qualifiers: Depression Type: unspecified Qualified Code(s): F32.9 - Major depressive disorder, single episode, unspecified Disposition: ELOPED
[2017-02-22 03:16] LABS: ABSOLUTE BASOPHILS # (AUTO) 0.1 10^3/uL (0.0-0.2); ABSOLUTE EOSINOPHILS # (AUTO) 0.1 10^3/uL (0.0-0.6); ABSOLUTE LYMPHOCYTES (AUTO) 2.5 10^3/uL (0.5-4.7); ABSOLUTE MONOCYTES (AUTO) 1.4 10^3/uL (0.1-1.4); ABSOLUTE NEUT (AUTO) 13.4 10^3/uL (1.7-8.2); BASOPHILS % (AUTO) 0.5 % (0-2); EOSINOPHILS % (AUTO) 0.7 % (0-6); HEMATOCRIT 51.3 % (37.9-51.0); HEMOGLOBIN 17.3 g/dL (13.5-17.0); HGB HCT DIFFERENCE 0.6; LYMPHOCYTES % (AUTO) 14.3 % (13-45); MEAN CORPUSCULAR HEMOGLOBIN 30.4 pg (27.0-33.4); MEAN CORPUSCULAR HGB CONC 33.7 g/dL (32.0-36.0); MEAN CORPUSCULAR VOLUME 90 fl (80-97); MONOCYTES % (AUTO) 7.7 % (3-13); RED BLOOD COUNT 5.67 10^6/uL (4.35-5.55); RED CELL DISTRIBUTION WIDTH 13.9 % (11.5-14.0); SEGMENTED NEUTROPHILS % (AUTO) 76.8 % (42-78); WHITE BLOOD COUNT 17.5 10^3/uL (4.0-10.5)
[2017-02-22 03:23] LABS: ALANINE AMINOTRANSFERASE 30 U/L (21-72); ALBUMIN 4.8 g/dL (3.5-5.0); ALCOHOL 138 mg/dL (NONE DETECTED); ALKALINE PHOSPHATASE 67 U/L (38-126); ANION GAP 16 (5-19); ASPARTATE AMINO TRANSFERASE 19 U/L (17-59); BILIRUBIN,DIRECT 0.4 mg/dL (0.0-0.4); BILIRUBIN,TOTAL 0.5 mg/dL (0.2-1.3); BLOOD UREA NITROGEN 7 mg/dL (7-20); CALCIUM 10.1 mg/dL (8.4-10.2); CARBON DIOXIDE 21 mmol/L (22-30); CHLORIDE 108 mmol/L (98-107); GLUCOSE 92 mg/dL (75-110); POTASSIUM 3.5 mmol/L (3.6-5.0); SODIUM 144.6 mmol/L (137-145); TOTAL PROTEIN 7.7 g/dL (6.3-8.2)
[2017-02-22 03:31] LABS: APPEARANCE,URINE CLEAR; BILIRUBIN,URINE NEGATIVE (NEGATIVE); GLUCOSE, URINE NEGATIVE (NEGATIVE); KETONES,URINE NEGATIVE (NEGATIVE); LEUKOCYTE ESTERASE,URINE NEGATIVE (NEGATIVE); NITRITE,URINE NEGATIVE (NEGATIVE); PROTEIN,URINE NEGATIVE (NEGATIVE); URINE SPECIFIC GRAVITY 1.002; UROBILINOGEN,URINE NEGATIVE mg/dL (<2.0)
[2017-02-22 03:47] VITALS: BP 111/72
[2017-02-22 03:47] LABS: URINE BARBITURATES SCREEN NEGATIVE; URINE METHADONE SCREEN NEGATIVE; URINE OPIATES LOW NEGATIVE; URINE PHENCYCLIDINE SCREEN NEGATIVE
[2017-02-22] MEDS ORDERED: DIPHENHYDRAMINE HCL 50 MG CAPSULE PO ONE (04:30)
--- NOTE | 2017-02-22 09:30 | EKG REPORT ---
SEVERITY:- ABNORMAL ECG - SINUS RHYTHM PROBABLE LEFT ATRIAL ABNORMALITY PROBABLE INFERIOR INFARCT, OLD : Confirmed by: Stella Barrow 22-Feb-2017 09:29:18
== END 2017-02-22 04:40 | disposition left against medical advice (07) ==
LOC: ER 02:53
DX: S50.812A Abrasion of left forearm, initial encounter (principal); S50.811A Abrasion of right forearm, initial encounter; F19.10 Other psychoactive substance abuse, uncomplicated; F32.9 Major depressive disorder, single episode, unspecified; X78.9XXA Intentional self-harm by unspecified sharp object, initial encounter
CPT/HCPCS: 36415; 80053; 80307; 81001; 85025; 93005; 93010; 99281

== ENCOUNTER 2017-02-23 23:08 | Emergency (ER) | payer SELFPAY ==
[2017-02-24 02:02] LABS: ABSOLUTE EOSINOPHILS # (AUTO) 0.1 10^3/uL (0.0-0.6); ABSOLUTE LYMPHOCYTES (AUTO) 2.1 10^3/uL (0.5-4.7); ABSOLUTE MONOCYTES (AUTO) 0.8 10^3/uL (0.1-1.4); ABSOLUTE NEUT (AUTO) 8.3 10^3/uL (1.7-8.2); BASOPHILS % (AUTO) 0.4 % (0-2); EOSINOPHILS % (AUTO) 0.7 % (0-6); HEMATOCRIT 52.8 % (37.9-51.0); HGB HCT DIFFERENCE 1.2; LYMPHOCYTES % (AUTO) 18.4 % (13-45); MEAN CORPUSCULAR HEMOGLOBIN 30.5 pg (27.0-33.4); MEAN CORPUSCULAR HGB CONC 34.1 g/dL (32.0-36.0); MEAN CORPUSCULAR VOLUME 89 fl (80-97); MONOCYTES % (AUTO) 7.4 % (3-13); RED BLOOD COUNT 5.91 10^6/uL (4.35-5.55); RED CELL DISTRIBUTION WIDTH 14.2 % (11.5-14.0); SEGMENTED NEUTROPHILS % (AUTO) 73.1 % (42-78); WHITE BLOOD COUNT 11.4 10^3/uL (4.0-10.5)
[2017-02-24 02:06] LABS: ALANINE AMINOTRANSFERASE 35 U/L (21-72); ALBUMIN 4.5 g/dL (3.5-5.0); ALKALINE PHOSPHATASE 73 U/L (38-126); ANION GAP 11 (5-19); ASPARTATE AMINO TRANSFERASE 21 U/L (17-59); BILIRUBIN,DIRECT 0.4 mg/dL (0.0-0.4); BILIRUBIN,TOTAL 0.5 mg/dL (0.2-1.3); BLOOD UREA NITROGEN 7 mg/dL (7-20); CARBON DIOXIDE 22 mmol/L (22-30); CHLORIDE 106 mmol/L (98-107); CREATININE RESULT 0.85 mg/dL (0.52-1.25); GLUCOSE 102 mg/dL (75-110); POTASSIUM 4.1 mmol/L (3.6-5.0); SODIUM 139.3 mmol/L (137-145); TOTAL PROTEIN 7.4 g/dL (6.3-8.2)
[2017-02-24 02:07] LABS: ALCOHOL < 10 mg/dL (NONE DETECTED)
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
[2017-02-24] MEDS ORDERED: LORAZEPAM INJ 2 MG/1 ML VIAL IM ONE (03:31)
[2017-02-24] MEDS ORDERED: HALOPERIDOL LACTATE INJ 5 MG/1 ML VIAL IM ONE (03:31)
[2017-02-24 03:47] LABS: APPEARANCE,URINE CLEAR; BILIRUBIN,URINE NEGATIVE (NEGATIVE); GLUCOSE, URINE NEGATIVE (NEGATIVE); KETONES,URINE NEGATIVE (NEGATIVE); LEUKOCYTE ESTERASE,URINE NEGATIVE (NEGATIVE); NITRITE,URINE NEGATIVE (NEGATIVE); PROTEIN,URINE NEGATIVE (NEGATIVE); URINE SPECIFIC GRAVITY 1.006; UROBILINOGEN,URINE NEGATIVE mg/dL (<2.0)
[2017-02-24 04:02] LABS: URINE BARBITURATES SCREEN NEGATIVE; URINE METHADONE SCREEN NEGATIVE; URINE OPIATES LOW NEGATIVE; URINE PHENCYCLIDINE SCREEN NEGATIVE
[2017-02-24 06:40] VITALS: BP 152/94
--- NOTE | 2017-02-24 21:33 | EKG REPORT ---
SEVERITY:- ABNORMAL ECG - SINUS RHYTHM PROBABLE INFERIOR INFARCT, OLD : Confirmed by: Stella Barrow 24-Feb-2017 21:32:14
== END 2017-02-24 14:11 ==
LOC: ER 23:08
DX: F32.9 Major depressive disorder, single episode, unspecified (principal); X78.9XXA Intentional self-harm by unspecified sharp object, initial encounter; S51.811A Laceration without foreign body of right forearm, initial encounter; S51.812A Laceration without foreign body of left forearm, initial encounter; F14.10 Cocaine abuse, uncomplicated; R45.850 Homicidal ideations; R44.0 Auditory hallucinations; F17.200 Nicotine dependence, unspecified, uncomplicated; I10 Essential (primary) hypertension; Z88.2 Allergy status to sulfonamides; Z91.14 Patient's other noncompliance with medication regimen
CPT/HCPCS: 93005; 99285; 96372; 36415; 80307 ×4; 85025; 80053; 81001; 93010; L3650; J2060; J1630

== ENCOUNTER 2019-04-05 22:46 | Emergency (ER) | payer SELFPAY ==
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
[2019-04-05 23:41] LABS: ABSOLUTE EOSINOPHILS # (AUTO) 0.2 10^3/uL (0.0-0.6); ABSOLUTE LYMPHOCYTES (AUTO) 1.7 10^3/uL (0.5-4.7); ABSOLUTE MONOCYTES (AUTO) 0.8 10^3/uL (0.1-1.4); BASOPHILS % (AUTO) 0.3 % (0-2); EOSINOPHILS % (AUTO) 2.5 % (0-6); HEMATOCRIT 42.7 % (37.9-51.0); HEMOGLOBIN 14.6 g/dL (13.5-17.0); MEAN CORPUSCULAR HEMOGLOBIN 29.6 pg (27.0-33.4); MEAN CORPUSCULAR HGB CONC 34.2 g/dL (32.0-36.0); MEAN CORPUSCULAR VOLUME 87 fl (80-97); MONOCYTES % (AUTO) 10.2 % (3-13); PLATELET COUNT 195 10^3/uL (150-450); RED BLOOD COUNT 4.92 10^6/uL (4.35-5.55); RED CELL DISTRIBUTION WIDTH 13.7 % (11.5-14.0); TOTAL CELLS COUNTED % (AUTO) 100 %; WHITE BLOOD COUNT 7.7 10^3/uL (4.0-10.5)
[2019-04-05 23:58] LABS: ALBUMIN 4.3 g/dL (3.5-5.0); ALKALINE PHOSPHATASE 58 U/L (38-126); ANION GAP 5 (5-19); ASPARTATE AMINO TRANSFERASE 44 U/L (17-59); BILIRUBIN,DIRECT 0.1 mg/dL (0.0-0.4); BILIRUBIN,TOTAL 0.6 mg/dL (0.2-1.3); BLOOD UREA NITROGEN 18 mg/dL (7-20); CALCIUM 9.4 mg/dL (8.4-10.2); CARBON DIOXIDE 31 mmol/L (22-30); CHLORIDE 103 mmol/L (98-107); GLUCOSE 92 mg/dL (75-110); POTASSIUM 3.9 mmol/L (3.6-5.0); TOTAL PROTEIN 6.9 g/dL (6.3-8.2)
[2019-04-05 23:59] LABS: ACETAMINOPHEN < 10 ug/mL (10-30); ALCOHOL < 10 mg/dL (NONE DETECTED); SALICYLATE < 1.0 mg/dL (2.0-20.0)
[2019-04-06] MEDS ORDERED: HALOPERIDOL LACTATE INJ 5 MG/1 ML VIAL IM ONE (01:44)
[2019-04-06] MEDS ORDERED: HALOPERIDOL LACTATE INJ 5 MG/1 ML VIAL ONE (01:44)
[2019-04-06] MEDS ORDERED: LORAZEPAM INJ 2 MG/1 ML VIAL IM ONE (01:45)
[2019-04-06] MEDS: LORAZEPAM INJ 2 MG/1 ML VIAL ONE ×2 (01:48→01:50)
[2019-04-06] MEDS: HALOPERIDOL LACTATE INJ 5 MG/1 ML VIAL IM ONE ×2 (01:49→01:52)
[2019-04-06] MEDS: LORAZEPAM INJ 2 MG/1 ML VIAL IM ONE ×2 (01:49→01:52)
[2019-04-06 06:22] VITALS: BP 182/141
--- NOTE | 2019-04-06 13:41 | EKG REPORT ---
SEVERITY:- ABNORMAL ECG - SINUS RHYTHM PROBABLE INFERIOR INFARCT, OLD : Confirmed by: Pushpa Glynn MD 06-Apr-2019 13:39:40
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
== END 2019-04-06 11:35 | disposition other institution (70) ==
LOC: ER 22:46
DX: F29 Unspecified psychosis not due to a substance or known physiological condition (principal)
CPT/HCPCS: 36415; 80307 ×3; 85025; 80053; 93005; 93010; J1630; J2060

== ENCOUNTER 2019-07-09 21:54 | Emergency (ER) | payer SELFPAY ==
[2019-07-09 22:32] VITALS: BP 130/75
== END 2019-07-09 23:02 | disposition left against medical advice (07) ==
LOC: ER 21:54
DX: Z53.21 Procedure and treatment not carried out due to patient leaving prior to being seen by health care provider (principal)